=== PATIENT | male | born 1970 | race Caucasian/White ===

== ENCOUNTER → 2025-08-14 10:13 | Outpatient (CLI) | payer OTHER, SELFPAY ==
--- NOTE | ~2025-08-14 | XR_ITS ---
EXAMINATION: XR finger 2nd RT min 2V, 08/14/2025 10:20 HARVEST MANAGER HISTORY: M65.321 - Trigger finger, right index finger COMPARISON: No comparisons available. Findings: No acute fracture or malalignment. No significant degenerative changes. Soft tissues unremarkable. Impression: No acute fracture or malalignment. Reviewed, dictated and finalized at location P. EST MANAGER Impression: No acute fracture or malalignment.
== END ==
LOC: EXPCRAD 10:15
PROVIDERS: PCP Nurse Practitioner Family; Visit Provider Nurse Practitioner Family
DX: M65.321 Trigger finger, right index finger (principal)
CPT/HCPCS: 73140